=== PATIENT | female | born 1995 | race Caucasian/White ===

== ENCOUNTER 2017-05-06 10:29 | Emergency (ER) | payer MEDICARE, OTHER ==
[2017-05-06 10:29] VITALS: BMI 19.0
[2017-05-06 10:43] VITALS: RESP 16; TEMP 98.5; O2SAT 98
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
--- NOTE | 2017-05-06 11:44 | RAD ---
PROCEDURE: Right Hand Radiographs. HISTORY: Pain COMPARISON: None. FINDINGS: BONES: Bone alignment and mineralization are normal. No acute fracture. JOINTS: Normal. No osteoarthritic changes. SOFT TISSUES: Normal. OTHER FINDINGS: None. IMPRESSION: Normal examination.
[2017-05-06 12:05] VITALS: BP 111/74; PULSE 79
== END 2017-05-06 12:04 | disposition home or self-care (01) ==
LOC: ED 10:29
DX: S60.221A Contusion of right hand, initial encounter (principal); Y04.0XXA Assault by unarmed brawl or fight, initial encounter; Y92.9 Unspecified place or not applicable; Y99.0 Civilian activity done for income or pay

== ENCOUNTER 2017-07-31 17:17 | Emergency (ER) | payer MEDICARE, OTHER ==
[2017-07-31 17:18] VITALS: BMI 19.0
[2017-07-31 17:46] VITALS: BP 116/72; PULSE 86; RESP 18; TEMP 98.3; O2SAT 99
[2017-07-31] MEDS ORDERED: Sodium Chloride 0.9% 1,000 ML IV STA (17:55)
[2017-07-31 18:49] LABS: BASO # 0.03 K/mm3 (0.0-2.0); BASO % 0.2 % (0.0-3.0); EOS % 0.3 % (1.5-5.0); GRAN # 10.92 (1.4-6.5); GRAN % 86.4 % (50.0-68.0); HEMATOCRIT 32.3 % (36.0-48.0); LYMPH # 1.2 (1.2-3.4); LYMPH % 9.3 % (22.0-35.0); MEAN CELL VOLUME 83.2 fl (80.0-105.0); MEAN CORPUSCULAR HEMOGLOBIN 26.5 pg (25.0-35.0); MEAN CORPUSCULAR HGB CONC 31.9 g/dl (31.0-37.0); MEAN PLATELET VOLUME 10.9 fl (7.0-11.0); MONO # 0.5 (0.1-0.6); MONO % 3.8 % (1.0-6.0); PH,URINE 6.5 (4.7-8.0); RED CELL DISTRIBUTION WIDTH 14.1 % (11.5-14.5); URINE BILIRUBIN NEGATIVE (NEGATIVE); URINE BLOOD LARGE (NEGATIVE); URINE GLUCOSE (UA) NEGATIVE (NEGATIVE); URINE KETONE NEGATIVE (NEGATIVE); URINE LEUKOCYTE ESTERASE TRACE Leu/uL (NEGATIVE); URINE PROTEIN TRACE mg/dL (<30 mg/dL); URINE UROBILINOGEN 0.2 E.U./dL (<1 E.U./dL); WHITE BLOOD COUNT 12.6 10^3/ul (4.5-11.0)
[2017-07-31 18:50] LABS: URINE COLOR YELLOW (YELLOW)
[2017-07-31 18:51] LABS: URINE APPEARANCE CLEAR (CLEAR)
[2017-07-31 18:53] LABS: ALB/GLOB RATIO 1.3 (1.1-1.8); ALKALINE PHOSPHATASE 42 U/L (38-126); ALT/SGPT 20 U/L (7-56); AST/SGOT 20 U/L (14-36); BLOOD UREA NITROGEN 16 mg/dL (7-21); CALCIUM 9.6 mg/dL (8.4-10.5); CARBON DIOXIDE 24 mmol/L (21-33); CHLORIDE 103 mmol/L (98-107); GFR AFRICAN-AMERICAN > 60; GLUCOSE,RANDOM 91 mg/dL (70-110); INR 1.13 (0.93-1.08); PARTIAL THROMBOPLASTIN TIME 34.2 Seconds (25.1-36.5); POTASSIUM 4.6 mmol/L (3.6-5.0); SODIUM 139 mmol/L (132-148); TOTAL PROTEIN 8.6 g/dL (5.8-8.3)
[2017-07-31 19:04] LABS: URINE BACTERIA MOD (NEG)
--- NOTE | 2017-07-31 19:13 | US ---
EXAM: US First Trimester, Transabdominal CLINICAL HISTORY: 22 years old, female; Pain; complicated by abdominal or pelvic pain; Lower; First trimester; Gestational age or lmp: 05/15/2017; ; Additional info: R/O ectopic/vag bleeder TECHNIQUE: Real-time transabdominal obstetrical ultrasound of the maternal pelvis and a first trimester with image documentation. COMPARISON: No relevant prior studies available. FINDINGS: Gestation: Gestational sac. Yolk sac. pole. No heartbeat detected. [place]-rump length of 1.8 cm, correlating with gestational age of 8 weeks 2 days. Uterus/cervix: No subchorionic hemorrhage. No cervical dilatation or effacement. Ovaries: RIGHT ovary: Probable 2.0 x 2.0 x 2.0 cm corpus luteal cyst. LEFT ovary: Not visualized. No adnexal masses. Free fluid: No significant free fluid. IMPRESSION: 1. Findings compatible with demise. 2. Incidental/non-acute findings are described above. EXAM: US , Transvaginal CLINICAL HISTORY: 22 years old, female; Pain; complicated by abdominal or pelvic pain; Lower; First trimester; Gestational age or lmp: 05/15/2017; ; Additional info: R/O ectopic/vag bleeder TECHNIQUE: Real-time transvaginal obstetrical ultrasound of the maternal pelvis and a first trimester with image documentation. Transvaginal imaging was used for better evaluation of the fetus and adnexa. COMPARISON: No relevant prior studies available. FINDINGS: Gestation: Gestational sac. Yolk sac. pole. No heartbeat detected. [place]-rump length of 1.8 cm, correlating with gestational age of 8 weeks 2 days. Uterus/cervix: No subchorionic hemorrhage. No cervical dilatation or effacement. Ovaries: RIGHT ovary: Probable 2.0 x 2.0 x 2.0 cm corpus luteal cyst. LEFT ovary: Not visualized. No adnexal masses. Free fluid: No significant free fluid.
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
== END 2017-07-31 20:15 | disposition home or self-care (01) ==
LOC: ED 17:17
DX: O36.4XX0 Maternal care for intrauterine death, not applicable or unspecified (principal); O23.41 Unspecified infection of urinary tract in pregnancy, first trimester; Z3A.10 10 weeks gestation of pregnancy
CPT/HCPCS: 76817; 80053; 81001; 84702; 85025; 85610; 85730; 86850; 86900; 87086; 99283; J7040

== ENCOUNTER 2018-10-26 08:49 | Outpatient (CLI) | payer OTHER, MEDICARE | END 2018-10-26 08:50 | disposition home or self-care (01) | LOC: LAB 08:49 ==